=== PATIENT | female | born 1990 ===

== ENCOUNTER 2022-05-28 00:18 | Emergency (ER) | payer MEDICAID ==
[2022-05-28] VITALS (7 sets, daily range): BP systolic 111–123; BP diastolic 72–83
[~2022-05-28] VITALS: Ht 177.8 cm; Wt 109.0 kg
[2022-05-28 02:09] LABS: HEMATOCRIT 40.9 % (37.0-47.0); HEMOGLOBIN 13.2 g/dl (12.0-16.0); MEAN CELL VOLUME 80.8 fL CALC (80.0-100.0); MEAN CORPUSCULAR HGB 26.1 pG CALC (26.0-32.0); MEAN CORPUSCULAR HGB CONC 32.3 g/dL CAL (32.0-36.0); NEUT# 4.56 thou/uL (2.00-7.15); RED BLOOD COUNT 5.06 mill/uL (4.20-5.60); RED CELL DISTRI WIDTH 13.6 % (11.5-15.5)
[2022-05-28 02:10] LABS: URINE BILIRUBIN - DIPSTICK NEGATIVE (NEGATIVE); URINE BLOOD DIPSTICK LARGE (NEGATIVE); URINE GLUCOSE - DIPSTICK NEGATIVE (NEGATIVE); URINE KETONE NEGATIVE (NEGATIVE); URINE PROTEIN - DIPSTICK NEGATIVE (NEG-TRACE); URINE SPECIFIC GRAVITY <=1.005; URINE UROBILINOGEN - DIPSTICK 0.2 E.U./dL (0.2)
[2022-05-28 02:11] LABS: URINE LEUK ESTERASE NEGATIVE (NEGATIVE); URINE NITRITE - DIPSTICK NEGATIVE (Negative)
[2022-05-28 02:17] LABS: URINE COLOR PINK
[2022-05-28 02:19] LABS: URINE BACTERIA FEW hpf; URINE EPITHELIAL CELLS FEW EPI/hpf (0-FEW); URINE RBC >100 RBC/hpf (0-5)
[2022-05-28 02:38] LABS: ALBUMIN 4.3 g/dL (3.2-5.0); ALKALINE PHOSPHATASE 60 u/l (38-126); ANION GAP 15 (6-22 (CALC)); BILIRUBIN, TOTAL 0.2 mg/dL (0.0-1.4); BUN 9 mg/dL (7-17); BUN/CREATININE RATIO 14 (12-20 (CALC)); CARBON DIOXIDE 25 mmol/l (22-30); CHLORIDE 104 mmol/l (95-108); CREATININE 0.7 mg/dL (0.5-1.0); GFR FOR AFR.AMER. > 60 ML/MIN (>=60 (CALC)); GFR OTHER RACES > 60 ML/MIN (>=60 (CALC)); POTASSIUM 4.4 mmol/l (3.5-5.1); SGOT/AST 21 u/l (14-36); SODIUM 139 mmol/l (137-146); TOTAL PROTEIN 7.8 g/dL (6.3-8.2)
[2022-05-28] MEDS ORDERED: FIORICET PO (02:49)
== END 2022-05-28 03:07 | disposition home or self-care (01) ==
LOC: ED 00:18
PROVIDERS: Emergency Medicine
DX: R51.9 Headache, unspecified (principal); F32.A Depression, unspecified